=== PATIENT | male | born 1990 | race Caucasian/White ===

== ENCOUNTER 2022-03-30 16:07 | Inpatient (IN) | payer MEDICARE, MEDICAID, SELFPAY ==
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
[2022-03-30 16:24] VITALS: BP 141/101; PULSE 118; RESP 20; TEMP 36.6; O2SAT 98; BMI 24.2
[2022-03-30 16:58] LABS: Basophils % 0.5 %; Eosinophils # 0.1 10^3/uL (0.0-0.8); Eosinophils % 1.1 %; Hematocrit 44.1 % (42.0-52.0); Hemoglobin 15.8 g/dL (11.7-16.6); Lymphocytes # 1.2 10^3/uL (0.8-4.8); Lymphocytes % 17.9 %; Mean Corpuscular HGB Conc 35.8 g/dL (30.0-36.0); Mean Corpuscular Volume 89.5 fl (80-94); Mean Platelet Volume 10.3 fL (7.4-10.4); Monocytes # 0.4 10^3/uL (0.2-0.9); Monocytes % 5.7 %; Neutrophils # 4.85 10^3/uL (1.8-7.7); Neutrophils % 74.3 %; Nucleated Red Blood Cells % 0 %; Platelet Count 202 10^3/cmm (130-400); Red Blood Count 4.93 10^6/uL (4.1-5.3); White Blood Count 6.5 10^3/uL (4.0-10.0)
[2022-03-30 17:21] LABS: Alanine Aminotransferase 10 U/L (0-41); Albumin Level 4.5 g/dL (3.5-5.2); Alkaline Phosphatase 78 IU/L (40-130); Aspartate Amino Transferase 10 U/L (0-40); Blood Urea Nitrogen 5 mg/dL (6-20); Calcium 9.2 mg/dL (8.5-10.5); Carbon Dioxide 26 mmol/L (22-29); Chloride 102 mmol/L (98-107); Creatinine Clr Calc Pharmacy 139.0482; Globulin 2.6 g/dL (1.3-4.6); Glomerular Filtration Rate 129.9 mL/min (90-130); Glucose 125 mg/dL (65-115); Lipase 17 U/L (13-60); Osmolality Calculated 289 mOsm/kg (285-295); Sodium 140 mmol/L (136-145); Total Bilirubin 0.5 mg/dL (0.15-1.2); Total Protein 7.1 g/dL (6.6-8.7)
[2022-03-30 17:22] LABS: Amphetamines Screen Urine Negative (Negative); Barbiturates Screen Urine Negative (Negative); Benzodiazepines Screen Urine Negative (Negative); Cocaine Screen Urine Negative (Negative); Opiate Screen Urine Negative (Negative); PCP Screen Urine Negative (Negative); THC Screen Urine Positive (Negative)
[2022-03-30 17:23] LABS: Acetaminophen < 5.0 ug/mL (10-30); Salicylate < 0.3 mg/dL (3-10)
[2022-03-30 18:06] VITALS: BP 124/80; PULSE 69; RESP 16; TEMP 36.6; O2SAT 98
[2022-03-30 18:24] VITALS: BP 136/81; PULSE 98; RESP 18; TEMP 36.6; O2SAT 96
[2022-03-30 21:17] VITALS: BP 113/73; PULSE 71; RESP 18; TEMP 36.7; O2SAT 98
[2022-03-31 06:00] VITALS: BP 122/78; PULSE 66; RESP 17; TEMP 36.7; O2SAT 96
[2022-03-31] MEDS: acetaminophen 325 mg Tablet 650 MG PO ×2 (08:36→20:46)
--- NOTE | 2022-03-31 10:45 | DCPLANNER ---
Addendum entered by Michelle Watts 06/08/22 11:15: Patient had a follow up appointment scheduled for 04.06.22 with ortho - patient did attend appointment. Addendum entered by Michelle Watts 04/03/22 04:49: Patient has a follow up appointment scheduled for Monday, April 06, 2022 at 3:[address] Cervantes at ortho. Clinic will call patient with appointment information. Original Note: dev manager had message to schedule a follow up appointment for patient with ortho. dev manager sent patients information to the front office staff at ortho. Patients information will be printed and reviewed. Clinic will call patient with appointment information.
[2022-03-31 14:00] VITALS: BP 147/97; PULSE 100; RESP 16; TEMP 36.5; O2SAT 96
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
[2022-03-31 20:44] VITALS: BP 131/83; PULSE 60; RESP 18; TEMP 36.8; O2SAT 97
--- NOTE | 2022-03-31 21:01 | PC.NURSE ---
PRN PT REQUESTED SOMETHING FOR PAIN AFTER TAKING A SHOWER WHICH INCREASED HIS PAIN IN THE RIGHT WRIST TO 3/10. TYLENOL WAS GIVEN.
[2022-04-01 06:00] VITALS: BP 116/73; PULSE 60; RESP 16; TEMP 36.4; O2SAT 97
[2022-04-01] MEDS: acetaminophen 325 mg Tablet 650 MG PO ×2 (06:19→19:57)
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
[2022-04-01] MEDS: nicotine 2 mg Gum BUCCAL ×4 (16:14→22:18)
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
[2022-04-01 19:58] VITALS: BP 139/86; PULSE 86; RESP 18; O2SAT 97
[2022-04-02 06:00] VITALS: BP 101/63; PULSE 70; RESP 16; O2SAT 98
[2022-04-02] MEDS: acetaminophen 325 mg Tablet 650 MG PO (08:10)
[2022-04-02] MEDS: nicotine 2 mg Gum BUCCAL ×7 (08:11→21:40)
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
[2022-04-02 14:00] VITALS: BP 136/85; PULSE 84; RESP 18; TEMP 36.8; O2SAT 96
[2022-04-02 19:41] VITALS: BP 147/96; PULSE 99; RESP 16; TEMP 36.9; O2SAT 94
[2022-04-03] MEDS: nicotine 2 mg Gum BUCCAL ×6 (05:56→21:16)
[2022-04-03] MEDS: acetaminophen 325 mg Tablet 650 MG PO ×2 (05:57→18:52)
[2022-04-03 06:00] VITALS: BP 132/81; PULSE 77; RESP 18; TEMP 36.6; O2SAT 97
--- NOTE | 2022-04-03 12:20 | P.NPUPN_ITS ---
Subjective NPU Subjective: Patient presents today for the first time not clearing about discharge. He reports that he except a certain level that he had a role in his being here in the hospital. He reported that he would be ready to leave when his 96-hour hold was complete. It seemed like he was trying to possibly reverse psychology that he said he does want to leave until the very end he may get a little early. We discussed the fact however that we do not hold people based on the timeframe of when they are safe discharge. He denies any new issues reported eating and sleeping fine. Mental Status Exam MSE Comments: This is a well nourished, well developed white male in hospital scrubs with poor dentition and limited grooming and adequate eye contact. No abnormal movements except for mild psychomotor agitation. Cooperative with exam in no acute distress. Speech was normal rate and volume. Mood described as I am fine, affect is less anxious and irritable. Thought process, organized. Thought content: patient denies any suicidal or homicidal ideation, reports paranoia but no other delusions noted, and denies any auditory or visual hallucinations. Attention and concentration are intact and memory is reliable but none were formally tested. He is alert and oriented three times. Insight and judgment are limited. Impulse control is limited.? Vitals/I&O/Wt Last Vital Signs Temp 97.9 F 04/03/22 06:00 Pulse 77 04/03/22 06:00 Resp 18 04/03/22 06:00 BP 132/81 04/03/22 06:00 Pulse Ox 97 04/03/22 06:00 Weight last 48 hrs Weight 60.328 kg Data NPU : 03/30/22 16:40 03/30/22 16:40 A&P Assessment and plan (1) Patient needs psychiatric hold for evaluation: Status: Acute (2) Partner relational problem: Status: Acute (3) Cannabis abuse: Status: Acute (4) Adjustment disorder with mixed disturbance of emotions and conduct: Status: Acute (5) Suicidal ideation: Status: Acute (6) Homicidal ideation: Status: Acute Plan This is a 31 year old white male white with a history of mental health treatment and addiction who presents reporting being hospitalized is a misunderstanding. 1.? Continue current medications 2.? Encourage individual, group and milieu therapy 3.? Continue q-15 minute check for safety 4.? Recommend sober living treatment at the highest level of care to which the patient is willing to commit. 5.? Evaluate safety and validity of the 96-hour hold. Involuntary Hold Information 96 Hour Hold: 96 Hour Involuntary Admission: Yes Attestations NPU Medical Necessity Statement*: Inpatient hospitalization is medically necessary and the clinically appropriate intervention at this time. We will monitor medications and make changes as indicated.? Likely length of stay is 1-3 days. 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
[2022-04-03 14:00] VITALS: BP 131/89; PULSE 66; RESP 16; TEMP 36.9; O2SAT 99
--- NOTE | 2022-04-03 18:54 | PC.NURSE ---
Pt came to the nursing station without his splint on his fractured right hand. Nurses educated pt about keeping his hand in the splint at all times, to keep the bones from shifting. Pt insisted that the doctor who placed it on gave him directions to take off splint and move and flex hand and fingers. Pt's hand is now bruised multi colors and swelling is present.
[2022-04-03 20:00] VITALS: BP 134/81; PULSE 90; RESP 18; TEMP 36.9; O2SAT 97
[2022-04-04 06:00] VITALS: BP 101/71; PULSE 87; RESP 16; TEMP 36.9; O2SAT 96
[2022-04-04] MEDS: nicotine 2 mg Gum BUCCAL ×7 (06:14→22:25)
[2022-04-04] MEDS: acetaminophen 325 mg Tablet 650 MG PO ×2 (06:14→20:19)
[2022-04-04 14:00] VITALS: BP 101/71; PULSE 87; RESP 16; TEMP 36.9; O2SAT 96
[2022-04-04 15:32] VITALS: BP 138/84; PULSE 82; RESP 20; TEMP 36.6; O2SAT 95
--- NOTE | 2022-04-04 17:18 | W.PM.NPUPNS ---
Subjective NPU Subjective: Patient presents today being much more under control but having some fun with other patients and being much less distressed. He really lacks clarity and what he believes he is going to change and needs to change to avoid future situations given he takes limited responsibility for his role in being here. Otherwise he denies any lethality or thoughts of retaliation aggression towards anyone involved. We discussed the likelihood of discharge tomorrow before the end of his 96-hour hold. Mental Status Exam MSE Comments: This is a well nourished, well developed white male in hospital scrubs with poor dentition and limited grooming and adequate eye contact. No abnormal movements except for mild psychomotor agitation. Cooperative with exam in no acute distress. Speech was normal rate and volume. Mood described better, affect is congruent and less anxious and irritable. Thought process, organized. Thought content: patient denies any suicidal or homicidal ideation, reports paranoia but no other delusions noted, and denies any auditory or visual hallucinations. Attention and concentration are intact and memory is reliable but none were formally tested. He is alert and oriented three times. Insight and judgment are limited. Impulse control is limited.? Vitals/I&O/Wt Last Vital Signs Temp 97.9 F 04/04/22 15:32 Pulse 82 04/04/22 15:32 Resp 20 H 04/04/22 15:32 BP 138/84 04/04/22 15:32 Pulse Ox 95 04/04/22 15:32 Weight last 48 hrs Weight 60.328 kg Data NPU : 03/30/22 16:40 03/30/22 16:40 A&P Assessment and plan (1) Patient needs psychiatric hold for evaluation: Status: Acute (2) Partner relational problem: Status: Acute (3) Cannabis abuse: Status: Acute (4) Adjustment disorder with mixed disturbance of emotions and conduct: Status: Acute (5) Suicidal ideation: Status: Acute (6) Homicidal ideation: Status: Acute Plan This is a 31 year old white male white with a history of mental health treatment and addiction who presents reporting being hospitalized is a misunderstanding. 1.? Continue current medications 2.? Encourage individual, group and milieu therapy 3.? Continue q-15 minute check for safety 4.? Recommend sober living treatment at the highest level of care to which the patient is willing to commit. 5.? Tentative plan for discharge in the morning. Involuntary Hold Information 96 Hour Hold: 96 Hour Involuntary Admission: Yes Attestations NPU Medical Necessity Statement*: Inpatient hospitalization is medically necessary and the clinically appropriate intervention at this time. We will monitor medications and make changes as indicated.? Likely length of stay is 1-2 days. Coding Level of Care Code Acute [employer] for [place] Fwd Diagnoses Patient needs psychiatric hold for evaluation Z00.8 Partner relational problem Z63.0 Cannabis abuse F12.10 Adjustment disorder with mixed disturbance of emotions and conduct F43.25 Suicidal ideation R45.851 Homicidal ideation R45.850
[2022-04-04 21:03] VITALS: BP 141/92; PULSE 92; RESP 20; TEMP 36.7; O2SAT 96
[2022-04-05] MEDS: trazodone 50 mg Tablet PO (00:10)
[2022-04-05 06:00] VITALS: BP 92/56; PULSE 86; RESP 18; TEMP 36.6; O2SAT 97
[2022-04-05] MEDS: acetaminophen 325 mg Tablet 650 MG PO ×3 (06:21→22:08)
[2022-04-05] MEDS: nicotine 2 mg Gum BUCCAL ×8 (06:21→22:09)
[2022-04-05 13:49] VITALS: BP 128/85; PULSE 82; RESP 18; TEMP 36.4; O2SAT 98
[2022-04-05 18:51] VITALS: BP 124/84; PULSE 99; TEMP 36.6; O2SAT 96
--- NOTE | 2022-04-05 19:17 | P.NPUPN_ITS ---
Subjective NPU Subjective: Patient resents today reporting that he is in a mental situation. He now accepts that he will be able to go back to his current housing situation long-term so he would rather find a new housing situation and only have to go to his old housing situation to grab his stuff and move it. However we discussed the fact that we are unable to keep him here for any long period of time for housing considerations given his situation. However he agreed to sign in and be discharged tomorrow to his orthopedic doctor to make sure he gets appropriate treatment for the fracture. Ultimately he is working with the social work team for possible options for post discharge living. Mental Status Exam MSE Comments: This is a well nourished, well developed white male in hospital scrubs with poor dentition and limited grooming and adequate eye contact. No abnormal movements except for mild psychomotor agitation. Cooperative with exam in no acute distress. Speech was normal rate and volume. Mood described better, affect is congruent. Thought process, organized. Thought content: patient denies any suicidal or homicidal ideation, reports paranoia but no other delusions noted, and denies any auditory or visual hallucinations. Attention and concentration are intact and memory is reliable but none were formally tested. He is alert and oriented three times. Insight and judgment are limited. Impulse control is limited.? Vitals/I&O/Wt Last Vital Signs Temp 98 F 04/05/22 18:51 Pulse 99 04/05/22 18:51 Resp 18 04/05/22 13:49 BP 124/84 04/05/22 18:51 Pulse Ox 96 04/05/22 18:51 Data NPU : 03/30/22 16:40 03/30/22 16:40 A&P Assessment and plan (1) Patient needs psychiatric hold for evaluation: Status: Acute (2) Partner relational problem: Status: Acute (3) Cannabis abuse: Status: Acute (4) Adjustment disorder with mixed disturbance of emotions and conduct: Status: Acute (5) Suicidal ideation: Status: Acute (6) Homicidal ideation: Status: Acute Plan This is a 31 year old white male white with a history of mental health treatment and addiction who presents reporting being hospitalized is a misunderstanding. 1.? Continue current medications 2.? Encourage individual, group and milieu therapy 3.? Continue q-15 minute check for safety 4.? Recommend sober living treatment at the highest level of care to which the patient is willing to commit. 5.? Plan for discharge to his doctor's appointment tomorrow. Involuntary Hold Information 96 Hour Hold: 96 Hour Involuntary Admission: Yes Attestations NPU Medical Necessity Statement*: Inpatient hospitalization is medically necessary and the clinically appropriate intervention at this time. We will monitor med ications and make changes as indicated.? Likely length of stay is 1 day. Coding Level of Care Code Acute Sap Bods Developer for g Fwd Diagnoses Patient needs psychiatric hold for evaluation Z00.8 Partner relational problem Z63.0 Cannabis abuse F12.10 Adjustment disorder with mixed disturbance of emotions and conduct F43.25 Suicidal ideation R45.851 Homicidal ideation R45.850
[2022-04-05 22:00] VITALS: BP 124/84; PULSE 99; RESP 18; TEMP 36.6; O2SAT 96
[2022-04-06 06:00] VITALS: BP 116/74; PULSE 76; RESP 16; TEMP 36.6; O2SAT 96
[2022-04-06] MEDS: acetaminophen 325 mg Tablet 650 MG PO (06:55)
[2022-04-06] MEDS: nicotine 2 mg Gum BUCCAL ×4 (06:55→14:21)
--- NOTE | 2022-04-06 08:21 | DCPLANNER ---
IMM WAS GIVEN TO PT AND RIGHTS EXPLAINED.
--- NOTE | 2022-04-06 09:04 | PC.NURSE ---
IN ROOM CONMMVERSING WITH STAFF AND PEERS. VERY ANIMATED WITH SPEAKING. DENIES PAIN. DENIES SI/HI AND AVH AT THIS TIME. ANTICIPATING DC TODAY. SPLINT IN PLACE TO RIGHT HAND, PULSES PALPABLE.
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
[2022-04-06 12:42] VITALS: BP 116/74; PULSE 76; RESP 16; TEMP 36.6; O2SAT 96
== END 2022-04-06 14:40 | disposition home or self-care (01) | DRG 882 ==
LOC: ER 16:36 → NP 17:09
PROVIDERS: Admitting Provider Psychiatry & Neurology Psychiatry; Emergency Provider Emergency Medicine; Visit Provider Psychiatry & Neurology Psychiatry
DX: F43.25 Adjustment disorder with mixed disturbance of emotions and conduct (principal); R45.851 Suicidal ideations; F60.3 Borderline personality disorder; R45.850 Homicidal ideations; S62.336A Displaced fracture of neck of fifth metacarpal bone, right hand, initial encounter for closed fracture; X58.XXXA Exposure to other specified factors, initial encounter; F17.210 Nicotine dependence, cigarettes, uncomplicated; Z81.8 Family history of other mental and behavioral disorders; F12.10 Cannabis abuse, uncomplicated; Z63.0 Problems in relationship with spouse or partner
CPT/HCPCS: 73130; 80053; 80306; 80307; 83690; 85025; 97150; 97165; 99285

== ENCOUNTER → 2022-04-06 14:46 | Outpatient (BNVA) | payer MEDICARE, MEDICAID, SELFPAY | PROVIDERS: Referring Provider Emergency Medicine; Visit Provider Specialist | DX: S62.336A Displaced fracture of neck of fifth metacarpal bone, right hand, initial encounter for closed fracture (principal); S62.91XA Unspecified fracture of right hand, initial encounter for closed fracture; S62.308A Unspecified fracture of other metacarpal bone, initial encounter for closed fracture; W22.8XXA Striking against or struck by other objects, initial encounter | CPT/HCPCS: 26600; 73130; 99204 ==

== ENCOUNTER 2022-04-06 16:48 | Outpatient (CLI) | payer MEDICARE, MEDICAID, SELFPAY | END 2022-04-06 16:49 | disposition home or self-care (01) | LOC: SPT 16:49 | PROVIDERS: Visit Provider Specialist | DX: Z46.89 Encounter for fitting and adjustment of other specified devices (principal); S62.308D Unspecified fracture of other metacarpal bone, subsequent encounter for fracture with routine healing; X58.XXXD Exposure to other specified factors, subsequent encounter | CPT/HCPCS: 97760; 99203; L3984 ==

== ENCOUNTER → 2022-06-29 11:27 | Outpatient (BNVA) | payer MEDICARE, SELFPAY | PROVIDERS: Visit Provider Psychiatry & Neurology Psychiatry | DX: F60.3 Borderline personality disorder (principal) | CPT/HCPCS: 80061; 83036 ==

== ENCOUNTER 2022-10-17 12:43 | Emergency (ER) | payer MEDICARE, MEDICAID, SELFPAY ==
[2022-07-04 16:09] VITALS: BP 139/96; BMI 22.2
[2022-10-17 13:09] VITALS: BP 125/89; PULSE 104; RESP 14; TEMP 36.7; O2SAT 100
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
[2022-10-17 14:42] LABS: Basophils % 0.3 %; Eosinophils # 0.1 10^3/uL (0.0-0.8); Eosinophils % 0.7 %; Hematocrit 48.5 % (42.0-52.0); Lymphocytes # 1.1 10^3/uL (0.8-4.8); Lymphocytes % 12.1 %; Mean Corpuscular HGB Conc 35.1 g/dL (30.0-36.0); Mean Corpuscular Hemoglobin 32.8 pg (28.0-34.0); Mean Corpuscular Volume 93.6 fl (80-94); Mean Platelet Volume 10.9 fL (7.4-10.4); Monocytes # 0.5 10^3/uL (0.2-0.9); Monocytes % 5.4 %; Neutrophils # 7.67 10^3/uL (1.8-7.7); Neutrophils % 81.3 %; Nucleated Red Blood Cells % 0 %; Platelet Count 202 10^3/cmm (130-400); Red Blood Count 5.18 10^6/uL (4.1-5.3); Red Cell Distribution Width 12.6 % (12.1-15.1); White Blood Count 9.4 10^3/uL (4.0-10.0)
[2022-10-17 15:15] LABS: Alanine Aminotransferase 9 U/L (0-41); Albumin Level 4.7 g/dL (3.5-5.2); Alkaline Phosphatase 83 U/L (40-130); Aspartate Amino Transferase 14 U/L (0-40); Blood Urea Nitrogen 4 mg/dL (6-20); Calcium 9.8 mg/dL (8.5-10.5); Carbon Dioxide 28 mmol/L (22-29); Chloride 98 mmol/L (98-107); Glomerular Filtration Rate 129.1 mL/min (90-130); Glucose 85 mg/dL (65-115); Osmolality Calculated 280 mOsm/kg (285-295); Sodium 137 mmol/L (136-145); Thyroid Stimulating Hormone 1.24 uIU/mL (0.27-4.20); Total Bilirubin 0.9 mg/dL (0.15-1.2); Total Protein 7.7 g/dL (6.6-8.7)
[2022-10-17 15:16] LABS: Acetaminophen < 5.0 ug/mL (10-30); Alcohol Level < 10 mg/dL (0-10); Salicylate < 0.3 mg/dL (3-10)
[2022-10-17 15:41] LABS: Add Urine Microscopic? NO; Charge for UA Resulting for Rev
[2022-10-17 15:45] LABS: Bilirubin Urine Neg (Negative); Blood Urine Neg (Negative); Glucose Urine UA Norm (Normal); Ketones Urine Negative (Negative); Leukocyte Esterase Urine Negative (Negative); Nitrate Urine Negative (Negative); Protein Urine Neg (Negative); Urine Appearance Clear (CLEAR); Urine Color Yellow (Yellow); Urobilinogen Urine Neg (Negative); pH Urine 6 (5-7)
[2022-10-17 15:51] LABS: Amphetamines Screen Urine Positive (Negative); Barbiturates Screen Urine Negative (Negative); Benzodiazepines Screen Urine Negative (Negative); Cocaine Screen Urine Negative (Negative); Opiate Screen Urine Negative (Negative); PCP Screen Urine Negative (Negative); THC Screen Urine Positive (Negative)
[2022-10-17 16:06] VITALS: BP 121/79; PULSE 101; RESP 14; O2SAT 100
--- NOTE | 2022-10-17 16:07 | PC.PHAR ---
Addendum entered by Makenna Reynolds 10/17/22 16:09: *he Original Note: pt states he takes no rx or otc medications-pt had trazodone 50mg hs prn filled 04/06/22 30d/s pt states after filling her lost it-pt states he use to be on medications but stop taking them jun 2021
[2022-10-17 16:27] VITALS: BP 121/79; PULSE 101; RESP 14; O2SAT 100
== END 2022-10-17 16:28 | disposition home or self-care (01) ==
PROVIDERS: Emergency Provider Student in an Organized Health Care Education/Training Program
DX: F43.25 Adjustment disorder with mixed disturbance of emotions and conduct (principal); F12.10 Cannabis abuse, uncomplicated; R44.0 Auditory hallucinations
CPT/HCPCS: 36415; 70450; 80053; 80306; 80307; 81003; 84443; 85025; 99284

== ENCOUNTER 2023-03-26 11:32 | Emergency (ER) | payer MEDICARE, MEDICAID, SELFPAY ==
[2022-07-04 16:09] VITALS: BP 139/96; BMI 22.2
[2023-03-26 11:54] VITALS: BP 117/81; PULSE 93; RESP 18; TEMP 36.6; O2SAT 100; BMI 21.9
--- NOTE | 2023-03-26 12:11 | XRR_ITS ---
PROCEDURE INFORMATION: Exam: XR Chest Exam date and time: 03/26/2023 12:23 PM Age: 32 years old Clinical indication: Injury or trauma; Fall; Blunt trauma (contusions or hematomas); Injury details: Pain lt ribs; Additional info: Fall left sided TECHNIQUE: Imaging protocol: Radiologic exam of the chest. Views: 2 views. COMPARISON: CT neck w con* [id number] 06/05/2017 4:47 PM FINDINGS: Lungs: Lung han are aerated and clear. No infiltrates or pulmonary congestion. Pleural spaces: Unremarkable. No pleural effusion. No pneumothorax. Heart/Mediastinum: Unremarkable. No cardiomegaly. Bones/joints: Unremarkable for age. XR/XR chest 2V* [id number] IMPRESSION: Negative chest. No active disease.
--- NOTE | 2023-03-26 12:18 | W.ED.FALL ---
HPI - Fall General: Chief Complaint: Fall Stated Complaint: Lower Back pain/injury Time Seen by Provider: 03/26/23 11:36 Source: patient Mode of arrival: ambulatory Limitations: no limitations History of Present Illness: This patient in the emergency department today because he fell approximately 2 perhaps 3 days ago on walking down from a friend's domicile and slipped on the concrete steps and landed with his left posterior rib cage on the edge of the steps. He denies any head trauma mid back pain neck pain etc. He states it is painful in his left back particular when he takes a deep breath or moves in a certain location. complaint: fall Place fall occurred: home Loss of consciousness: None Location of injury: chest and back Associated symptoms-after fall: Reports chest pain; Denies abdominal pain, headache(s), hematuria, lightheadedness or neck pain Review of Systems Const: Denies: fever(s) or chills Eyes: Denies: change in vision ENMT: Denies: throat pain, odynophagia, nasal discharge or nasal congestion Card: Reports: chest pain; Denies: palpitations, irregular heart rhythm, lightheadedness, syncope or pre-syncope Resp: Reports: pain on inspiration; Denies: dyspnea, productive cough, non-productive cough, wheezing, stridor or hemoptysis GI: Denies: abdominal pain, nausea, vomiting or hematemesis : Reports: flank pain; Denies: difficulty urinating, dysuria, urinary frequency or hematuria Musc: Denies: neck pain, extremity pain or extremity swelling Skin/Breast: Denies: rash Neuro: Denies: headache(s), numbness in extremities or weakness in extremities Psych: Denies: anxiety or depression PFS ED PFSH: Medical History Alcohol abuse, episodic Borderline personality disorder Insomnia Intermittent explosive disorder Methamphetamine abuse, episodic Patient needs psychiatric hold for evaluation Psychiatric care Tobacco use disorder, continuous Social History Smoking and tobacco status: never smoked Alcohol intake: never Substance/Drug Use: never Physical Exam Narrative: EXAM NARRATIVE: The patient is alert and in no acute distress. He answers questions in a goal-directed fashion. He makes good eye contact. Const: COMMON NORMALS: no acute distress, average body habitus, patient oriented x3, healthy appearing and alert GENERAL APPEARANCE: cooperative and comfortable HENMT: COMMON NORMALS: normocephalic, atraumatic, Normal nasal mucous membranes and turbinates present, moist oral mucous membranes and oropharynx normal HEAD & SCALP: normocephalic and atraumatic FACE & SINUS: normal facial exam NOSE: Normal nasal mucous membranes and turbinates present Eye: COMMON NORMALS: Equal, round and reactive pupils present, EOMs intact bilaterally and conjunctivae normal CONJUNCTIVA: Yes conjunctivae normal PUPIL: Yes Equal, round and reactive pupils present Neck/C-Spine: COMMON NORMALS: full ROM CERVICAL SPINE: Yes cervical ROM normal, No Cervical spine tenderness, No step off deformity, No Paracervical muscle tenderness, No Paracervical spasm and No Trapezius muscle tenderness OTHER: He is able to range his neck forward backward 15 degrees 45 degrees to the left and right without difficulty. Back/Pelvis: COMMON NORMALS: thoracic and lumbar spine normal to inspection, no thoracic nor lumbar tenderness, thoraco-lumbar ROM normal and straight leg raise negative bilaterally BACK IMAGE (MALE): 1. Abrasion 2. Abrasion 3. Abrasion 4. Tenderness. No crepitance. No subcutaneous emphysema. No ecchymosis. Extremity: COMMON NORMALS: normal to inspection, no calf tenderness and no pedal edema Neuro: COMMON NORMALS: patient oriented x3, moves all extremities, no focal motor deficits and no sensory deficits noted SENSORIUM/ORIENTATION: Yes alert CRANIAL NERVES: Yes CN normal except as noted Course Vital Signs: Vital signs: Vital Signs Temperature 97.9 F 03/26/23 11:54 Pulse Rate 93 03/26/23 11:54 Respiratory Rate 18 03/26/23 11:54 Blood Pressure 117/81 03/26/23 11:54 Pulse Oximetry 100 03/26/23 11:54 Oxygen Delivery Me thod Room Air 03/26/23 11:54 MDM - Fall Medical Decision Making Patient presented to the emergency department because of concerns about possible fractured ribs. He had a fall approximately 2 to 3 days ago on his left posterior rib cage. He had no other injuries noted historically. His clinical examination was reassuring in that there was no evidence of subcutaneous emphysema, crepitance, other concerning physical examination findings on his evaluation. 2 view chest x-ray was obtained which revealed no evidence of pneumothorax or obvious rib fracture etc. Current presentation is consistent with a chest wall contusion. I discussed expected course and resolution timeframe with him. He voiced understanding. We also discussed return precautions. Stable at this time. Lab Data I reviewed the patient's lab results. Radiology Impressions Chest X-Ray 03/26/23 12:11 IMPRESSION: Negative chest. No active disease. Discharge Plan Discharge Patient Disposition: Home Clinical Impression: Contusion of back wall of thorax Condition: Stable Prescriptions: No Action trazodone 50 mg tablet 50 mg PO BEDTIME Risperdal 1 mg tablet 2 mg PO QAM Discharge Orders: Discharge ED (Routine); Ordered 03/26/23 Ordered By: Omi Squires Discharge Diet: Usual diet Discharge Activity: Increase activity as tolerated Patient Instructions: Opioid Safety, Pain Management Activity Restrictions/Additional Instructions: As we discussed no evidence of serious injury as a result of your fall. You have bruising to your ribs and chest wall. We expect these symptoms to improve gradually over the next approximately 2 weeks or so. You may use ibuprofen or acetaminophen in the usual [id number] doses for any pain. Should you develop difficulty breathing, worsening pain or other concerns you are welcome to return to the emergency department for reevaluation. Coding Level of Care Code ED Outreach And Education Social Worker for Denisa Hargrove
[2023-03-26 12:59] VITALS: BP 109/82; PULSE 81; RESP 16; O2SAT 100
--- NOTE | 2023-03-29 13:51 | DCPLANNER ---
Case arlener called patient due to no primary care physician - no answer at this time - a voicemail was left for patient to return caser up phone call.
== END 2023-03-26 13:00 | disposition home or self-care (01) ==
PROVIDERS: Emergency Provider Emergency Medicine
DX: S20.222A Contusion of left back wall of thorax, initial encounter (principal); S30.810A Abrasion of lower back and pelvis, initial encounter; W01.0XXA Fall on same level from slipping, tripping and stumbling without subsequent striking against object, initial encounter; Y93.01 Activity, walking, marching and hiking; Y92.009 Unspecified place in unspecified non-institutional (private) residence as the place of occurrence of the external cause
CPT/HCPCS: 71046; 99283

== ENCOUNTER 2023-09-04 21:44 | Emergency (ER) | payer MEDICARE, MEDICAID, SELFPAY ==
[2022-07-04 16:09] VITALS: BP 139/96; BMI 22.2
[2023-09-04 21:51] VITALS: BP 134/89; PULSE 94; RESP 16; TEMP 36.9; O2SAT 100
--- NOTE | 2023-09-04 22:19 | W.ED.PSYCHS ---
HPI - Psych General: Chief Complaint: Psychiatric Symptoms Stated Complaint: hallucinations/aggression Time Seen by Provider: 09/04/23 22:13 History of Present Illness: 33-year-old male patient comes in today with complaints of aggression and auditory hallucinations. Patient states he hears people yelling pedophile , and making other rude comments towards him. Patient reports that he is taking his risperidone 2 mg in the morning but has not been taking his trazodone because it causes him to jerk awake. Patient does admit to using marijuana and methamphetamines. Patient's last use of methamphetamines was 2 days ago. Patient reports that he called all enforcement tonight who then called EMS to have him evaluated further in the emergency room due to his statements. Patient is cooperative and is not hostile towards staff or EMS. Associated symptoms: Reports auditory hallucinations and delusions (Believes his neighbors is calling him names and telling him to leave apts.) Review of Systems General: Reports: 10 or more systems reviewed and unremarkable except in HPI and below Const: Denies: fever(s) Card: Denies: chest pain Resp: Denies: dyspnea GI: Denies: abdominal pain : Denies: difficulty urinating Musc: Denies: neck pain or back pain Neuro: Denies: headache(s) Psych: Reports: paranoia and auditory hallucinations [facility] ED PFSH: Medical History Alcohol abuse, episodic Borderline personality disorder Insomnia Intermittent explosive disorder Methamphetamine abuse, episodic Patient needs psychiatric hold for evaluation Psychiatric care Tobacco use disorder, continuous Social History Smoking and tobacco/nicotine status: never used tobacco/nicotine Alcohol intake: never Substance/Drug Use: never Physical Exam Const: COMMON NORMALS: alert HENMT: COMMON NORMALS: normocephalic HEAD & SCALP: normocephalic Neck/C-Spine: COMMON NORMALS: full ROM Chest: COMMONS NORMALS: normal inspection of the chest Resp: COMMON NORMALS: normal respiratory effort and clear to auscultation bilaterally AUSCULTATION: clear to auscultation bilaterally Cardio: COMMON NORMALS: regular rate and regular rhythm RATE: regular rate RHYTHM: regular rhythm GI: PALPATION: No Tenderness to palpation present (GI) Back/Pelvis: COMMON NORMALS: thoracic and lumbar spine normal to inspection Neuro: SENSORIUM/ORIENTATION: Yes alert Psych: COMMON NORMALS: cooperative and denies hallucinations APPEARANCE: Yes unkempt ATTITUDE: Yes engaged ACTIVITY/MOTOR BEHAVIOR: Yes fidgeting SPEECH: Yes rapid MOOD & AFFECT: Yes elevated mood and Yes Labile affect present THOUGHT PROCESS: Circumstantial thought process present THOUGHT CONTENT: Yes delusions (Believes his neighbors is calling him names and telling him to leave apts.) Delusional thought content details: paranoid and Yes Hallucination(s) present (Hears voices saying negative, believes that his neighbors.) ATTENTION/CONCENTRATION: Yes attention grossly intact MEMORY/COGNITION: Yes memory grossly intact INSIGHT: questionable JUDGEMENT: questionable Course Vital Signs: Vital signs: Vital Signs Temperature 98.5 F 09/04/23 21:51 Pulse Rate 94 09/04/23 21:51 Respiratory Rate 16 09/04/23 21:51 Blood Pressure 134/89 09/04/23 21:51 Pulse Oximetry 100 09/04/23 21:51 MDM - Psych Medical Decision Making Patient was brought in by EMS after a call from on enforcement for concerns of aggressive behavior and hallucinations. Patient is cooperative at this time and states that he feels that the neighbors are lying to the law enforcement and he believes they are calling him pedophile and telling him to leave the apartments when his back is turned. Patient does take his medications as directed except the trazodone which causes him to twitch at night. Patient also admits to use of marijuana and methamphetamines. Patient's last dose of methamphetamines was 2 days ago. Patient is cooperative on exam. Patient agrees to take medications by mouth. Vital signs are normal. No injuries are noted. Patient is able to be redirected. Differential diagnosis includes but not limited to substance use disorder, acute psychosis secondary to methamphetamine use, exacerbation of chronic mental illness. Patient had improved symptoms after administration of 0.5 mg of clonazepam and 10 mg of olanzapine. Patient felt better to go home. Patient be continued on olanzapine 5 mg at bedtime and continue with his risperidone 2 mg in the morning. I reviewed this with Dr. Hauser who will monitor patient until he is alert enough to be discharged home unless he can get a ride. Patient denied any suicidal or homicidal intent. Patient was stable and discharged. Lab Data 09/04/23 23:00 09/04/23 23:00 Laboratory Results WBC 11.67 10^3/uL (3.29-11.43) H 09/04/23 23:00 RBC 5.02 10^6/uL (3.85-5.65) 09/04/23 23:00 Hgb 15.80 g/dL (11.27-16.99) 09/04/23 23:00 Hct 45.7 % (37-53) 09/04/23 23:00 MCV 91.0 fl (82-101) 09/04/23 23:00 MCH 31.5 pg (27-33) 09/04/23 23:00 MCHC 34.6 g/dL (30-55) 09/04/23 23:00 RDW 12.2 % (12.1-15.1) 09/04/23 23:00 Plt Count 209 10^3/cmm (157-399) 09/04/23 23:00 MPV 10.8 fL (7.4-10.4) H 09/04/23 23:00 Neut % (Auto) 70.3 % 09/04/23 23:00 Lymph % (Auto) 21.1 % 09/04/23 23:00 [place] % (Auto) 5.9 % 09/04/23 23:00 Eos % (Auto) 1.9 % 09/04/23 23:00 Baso % (Auto) 0.5 % 09/04/23 23:00 Neut # (Auto) 8.21 10^3/uL (1.8-7.7) H 09/04/23 23:00 Lymph # (Auto) 2.5 10^3/uL (0.8-4.8) 09/04/23 23:00 [place] # (Auto) 0.7 10^3/uL (0.2-0.9) 09/04/23 23:00 Eos # (Auto) 0.2 10^3/uL (0.0-0.8) 09/04/23 23:00 Baso # (Auto) 0.1 10^3/uL (0.0-0.1) 09/04/23 23:00 Nucleated RBC % (auto) 0 % 09/04/23 23:00 Nucleated RBCs # 0.0 /100WBC 09/04/23 23:00 Sodium 140 mmol/L (136-145) 09/04/23 23:00 Potassium 4.0 mmol/L (3.5-5.1) 09/04/23 23:00 Chloride 103 mmol/L (98-107) 09/04/23 23:00 Carbon Dioxide 27 mmol/L (22-29) 09/04/23 23:00 Anion Gap 14.0 (5-19) 09/04/23 23:00 BUN 10 mg/dL (6-20) 09/04/23 23:00 Creatinine 0.7 mg/dL (0.7-1.2) 09/04/23 23:00 GFR Calculation 128.3 mL/min (90-130) 09/04/23 23:00 Glucose 93 mg/dL (65-115) 09/04/23 23:00 Calculated Osmolality 289 mOsm/kg (285-295) 09/04/23 23:00 Calcium 10.2 mg/dL (8.5-10.5) 09/04/23 23:00 Total Bilirubin 0.4 mg/dL (0.15-1.2) 09/04/23 23:00 AST 12 U/L (0-40) 09/04/23 23:00 ALT 12 U/L (0-41) 09/04/23 23:00 Alkaline Phosphatase 77 U/L (40-130) 09/04/23 23:00 Total Protein 7.6 g/dL (6.6-8.7) 09/04/23 23:00 Albumin 4.6 g/dL (3.5-5.2) 09/04/23 23:00 Globulin 3.0 g/dL (1.3-4.6) 09/04/23 23:00 TSH 1.39 uIU/mL (0.27-4.20) 09/04/23 23:00 Salicylates < 0.3 mg/dL (3-10) L 09/04/23 23:00 Acetaminophen < 5.0 ug/mL (10-30) L 09/04/23 23:00 Ethyl Alcohol < 10 mg/dL (0-10) 09/04/23 23:00 No radiology studies performed this visit Discharge Plan Discharge Patient Disposition: Home Clinical Impression: Intermittent explosive disorder, Adjustment disorder with mixed disturbance of emotions and conduct, Methamphetamine abuse, episodic Condition: Stable Prescriptions: New olanzapine 5 mg tablet,disintegrating 5 mg PO QPM Qty: 30 0RF No Action trazodone 50 mg tablet 50 mg PO BEDTIME Risperdal 1 mg tablet 2 mg PO QAM Discharge Orders: Discharge ED (Routine); Ordered 09/05/23 Ordered By: Lázaro Weller Discharge Diet: Usual diet Discharge Activity: Increase activity as tolerated Patient Instructions: Methamphetamine Use Disorder (ED), Opioid Safety, Pain Management Activity Restrictions/Additional Instructions: Continue with risperidone 2 mg every morning. Take olanzapine 5 mg at bedtime or in the evening. Drink plenty of water with medications. Follow-up with primary care or psychiatry specialist for further evaluation and treatment. Return to ER for new concerns or worsening symptoms. Coding Level of Care Code ED Jig Grinder for Denisa Hargrove
[2023-09-04 22:36] VITALS: BP 121/88; PULSE 86; O2SAT 92
[2023-09-04] MEDS: OLANZapine 10 mg ODT PO (23:09)
[2023-09-04] MEDS: CLONazepam 0.5 mg Tablet PO (23:09)
[2023-09-04 23:18] LABS: Basophils # 0.1 10^3/uL (0.0-0.1); Basophils % 0.5 %; Eosinophils # 0.2 10^3/uL (0.0-0.8); Eosinophils % 1.9 %; Hematocrit 45.7 % (37-53); Lymphocytes # 2.5 10^3/uL (0.8-4.8); Lymphocytes % 21.1 %; Mean Corpuscular HGB Conc 34.6 g/dL (30-55); Mean Corpuscular Hemoglobin 31.5 pg (27-33); Mean Platelet Volume 10.8 fL (7.4-10.4); Monocytes # 0.7 10^3/uL (0.2-0.9); Monocytes % 5.9 %; Neutrophils # 8.21 10^3/uL (1.8-7.7); Neutrophils % 70.3 %; Nucleated Red Blood Cells % 0 %; Platelet Count 209 10^3/cmm (157-399); Red Blood Count 5.02 10^6/uL (3.85-5.65); Red Cell Distribution Width 12.2 % (12.1-15.1); White Blood Count 11.67 10^3/uL (3.29-11.43)
[2023-09-04 23:46] LABS: Alanine Aminotransferase 12 U/L (0-41); Albumin Level 4.6 g/dL (3.5-5.2); Alkaline Phosphatase 77 U/L (40-130); Aspartate Amino Transferase 12 U/L (0-40); Blood Urea Nitrogen 10 mg/dL (6-20); Calcium 10.2 mg/dL (8.5-10.5); Carbon Dioxide 27 mmol/L (22-29); Chloride 103 mmol/L (98-107); Glomerular Filtration Rate 128.3 mL/min (90-130); Glucose 93 mg/dL (65-115); Osmolality Calculated 289 mOsm/kg (285-295); Sodium 140 mmol/L (136-145); Thyroid Stimulating Hormone 1.39 uIU/mL (0.27-4.20); Total Bilirubin 0.4 mg/dL (0.15-1.2); Total Protein 7.6 g/dL (6.6-8.7)
[2023-09-04 23:48] LABS: Acetaminophen < 5.0 ug/mL (10-30); Alcohol Level < 10 mg/dL (0-10); Salicylate < 0.3 mg/dL (3-10)
[2023-09-05 05:52] VITALS: BP 115/86; PULSE 60; RESP 16; O2SAT 100
== END 2023-09-05 08:31 | disposition home or self-care (01) ==
PROVIDERS: Emergency Provider Nurse Practitioner Family
DX: F63.81 Intermittent explosive disorder (principal); F43.25 Adjustment disorder with mixed disturbance of emotions and conduct; F15.10 Other stimulant abuse, uncomplicated
CPT/HCPCS: 36415; 80053; 80307; 84443; 85025; 99283

== ENCOUNTER 2024-03-06 05:51 | Emergency (ER) | payer MEDICARE, MEDICAID, SELFPAY ==
[2022-07-04 16:09] VITALS: BP 139/96; BMI 22.2
[2024-03-06 05:52] VITALS: BP 150/97; PULSE 78; RESP 16; TEMP 36.7; O2SAT 100; BMI 24.7
[2024-03-06 06:24] VITALS: PULSE 88; RESP 19; O2SAT 99
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
--- NOTE | 2024-03-06 06:26 | XRR_ITS ---
PROCEDURE INFORMATION: Exam: XR Chest Exam date and time: 03/06/2024 6:43 AM Age: 33 years old Clinical indication: Chest wall pain; Additional info: Injury to left chest TECHNIQUE: Imaging protocol: Radiologic exam of the chest. Views: 1 view. COMPARISON: CR XR chest 2V* [id number] 03/26/2023 12:23 PM FINDINGS: Lungs: Unremarkable. No consolidation. Pleural spaces: Unremarkable. No pleural effusion. No pneumothorax. Heart/Mediastinum: Unremarkable. No cardiomegaly. Bones/joints: Unremarkable. XR/XR chest 1V portable [id number] IMPRESSION: No acute findings.
[2024-03-06] MEDS: saline nasal spray 44mL Btl 1 SPRAY NASAL (08:22)
[2024-03-06 08:35] VITALS: BP 141/105; PULSE 72; RESP 18; O2SAT 98
== END 2024-03-06 08:37 ==
PROVIDERS: Emergency Provider Emergency Medicine
DX: J34.89 Other specified disorders of nose and nasal sinuses (principal); S20.212A Contusion of left front wall of thorax, initial encounter; Y04.2XXA Assault by strike against or bumped into by another person, initial encounter; Y92.149 Unspecified place in prison as the place of occurrence of the external cause
CPT/HCPCS: 71045; 99283